=== PATIENT | female | born 1995 | race African-American/Black ===

== ENCOUNTER 2018-06-23 16:29 | Emergency (ER) | payer MEDICAID ==
[~2018-06-23] VITALS: Ht 152.4 cm; Wt 79.4 kg
[~2018-06-23 16:29] MED LIST: AMOXICILLIN500 MG ORAL; ATROVENT 0.03%30 M1 NASAL; CEPHALEXIN500 MG ORAL; IBUPROFEN600 MG ORAL; IBUPROFEN800 MG ORAL; LEVAQUIN250 M1 ORAL; NKM; PROMETHAZINE-C118 M1 ORAL
[2018-06-23 16:40] VITALS: BP 122/64
[2018-06-23] MEDS ORDERED: Methocarbamol 500mg tab ORAL ONE (16:45)
--- NOTE | 2018-06-23 17:03 | Diagnostic Imaging Report ---
EXAM: XR Left Hand Complete, 3 or More Views CLINICAL HISTORY: PAIN TECHNIQUE: Frontal, lateral and oblique views of the left hand. COMPARISON: No relevant prior studies available. FINDINGS: Bones/joints: No acute displaced fracture or dislocation. Soft tissues: Unremarkable. No radiopaque foreign body. IMPRESSION: No acute displaced fracture or dislocation.
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
[2018-06-23] MEDS ORDERED: ROBAXIN-750750 MG PO (17:11)
[2018-06-23] MEDS ORDERED: TYLENOL EXTRA500 MG ORAL (17:11)
[2018-06-23 17:23] VITALS: BP 124/61
== END 2018-06-23 17:27 | disposition home or self-care (01) ==
LOC: EMR 17:10
DX: S63.602A Unspecified sprain of left thumb, initial encounter (principal); S93.601A Unspecified sprain of right foot, initial encounter; V43.52XA Car driver injured in collision with other type car in traffic accident, initial encounter; Y92.410 Unspecified street and highway as the place of occurrence of the external cause; Z88.1 Allergy status to other antibiotic agents
CPT/HCPCS: 99283

== ENCOUNTER → 2019-09-27 | Emergency (ER) | payer MEDICAID ==
[~2019-09-27] VITALS: Ht 152.4 cm; Wt 81.6 kg
[~2019-09-27] MED LIST changes: +Dexamethasone 4mg/ml vial IVP ONE; +ROBAXIN-750750 MG PO; +TYLENOL EXTRA500 MG ORAL
[2019-09-27 15:30] VITALS: BP 112/69
--- NOTE | 2019-09-27 15:30 | NUR ---
ED Nurse Note: Pt ambulated to ed d/t throat pain started since yesterday
--- NOTE | 2019-09-27 15:40 | Emergency Room Report ---
History of Present Illness General Chief Complaint: Sore Throat Source: Patient Present Illness HPI 24-year-old female presents with cough, sore throat no fevers, x1 day no aggravating relieving factors severity is mild, sore throat is achy in nature patient presents for evaluation symptom started 1 day ago Allergies: Coded Allergies: ERYTHROMYCIN BASE (Unverified Allergy, Unknown, 01/24/14) Patient History Past Medical History: see triage record Now: No Reviewed Nursing Documentation: PMH: Agreed; PSxH: Agreed Nursing Documentation-PMH Past Medical History: No Stated History Review of Systems All Other Systems: negative except mentioned in HPI Physical Exam Vital Signs Date Time Temp Pulse Resp B/P (MAP) Pulse Ox O2 Delivery O2 Flow Rate FiO2 09/27/19 15:28 98.1 98 17 112/69 (83) 99 Room Air Sp02 EP Interpretation: reviewed, normal General Appearance: well appearing, no apparent distress, alert Head: normocephalic, atraumatic Eyes: bilateral eye PERRL, bilateral eye EOMI ENT: uvula midline, moist mucus membranes Neck: supple, thyroid normal, supple/symm/no masses Respiratory: lungs clear, no respiratory distress, no retraction, no accessory muscle use Cardiovascular #1: normal peripheral pulses, regular rate, rhythm, no edema, no gallop, no murmur Gastrointestinal: non tender, soft, no guarding, no rebound Musculoskeletal: normal inspection Neurologic: alert, oriented x3 Psychiatric: mood/affect normal Skin: no rash, warm/dry Medical Decision Making Diagnostic Impression: Primary Impression: Viral pharyngitis ER Course 24-year-old female presents with cough, sore throat most likely viral pharyngitis, low suspicion for strep throat given the fact she is got 0 out of the 4 Cent[facility] criteria Disposition home with return cautions follow-up with PCP supportive care Decadron given to patient Last Vital Signs Date Time Temp Pulse Resp B/P (MAP) Pulse Ox O2 Delivery O2 Flow Rate FiO2 09/27/19 15:28 98.1 98 17 112/69 (83) 99 Room Air Disposition: HOME, SELF-CARE Condition: Stable Referrals: [facility] Patient Instructions: Pharyngitis, [id number] Additional Instructions: The patient was provided with discharge instructions, notified to follow-up with a primary care doctor and or specialist in the next 24-48 hours, and to return to the ED if they have worsening of their symptoms. Please note that this report is being documented using [employer] technology. This can lead to erroneous entry secondary to incorrect interpretation by the dictating instrument. Yared Lim MD Sep 27, 2019 15:40
[2019-09-27 15:49] VITALS: BP 112/69
--- NOTE | 2019-09-27 15:49 | NUR ---
ER DISCHARGE NOTE: Patient is cleared to be discharged per ERMD, pt is aox4, on room air, with stable vital signs. pt was given dc and prescription instructions, pt was able to verbalize understanding, pt id band removed. pt is able to ambulate with steady gait. pt took all belongings.
== END | disposition home or self-care (01) ==
LOC: EMR 15:40
DX: J02.9 Acute pharyngitis, unspecified (principal); Z88.1 Allergy status to other antibiotic agents
CPT/HCPCS: 81025; 96374; J1100; Z7502; 99284

== ENCOUNTER 2020-01-15 09:16 | Emergency (ER) | payer MEDICAID ==
[~2020-01-15] VITALS: Ht 152.4 cm; Wt 86.2 kg
[~2020-01-15 09:16] MED LIST changes: -Dexamethasone 4mg/ml vial IVP ONE
--- NOTE | 2020-01-15 09:47 | Emergency Room Report ---
History of Present Illness General Chief Complaint: Abdominal Pain Source: Patient (Jose Javier MD) Present Illness HPI Disclaimer: Please note that this report is being documented using [employer] [place] technology. This can lead to erroneous entry secondary to incorrect interpretation by the dictating instrument. HPI: 24-year-old female presents for evaluation of pelvic pain. Symptoms began last night approximately 1 AM. She notes a generalized discomfort aching and cramping in the lower pelvic in the suprapubic region bilateral lower quadrants. Denies nausea, vomiting, fever, chills, flank pain. Denies vaginal discharge, vaginal bleeding, dysuria, hematuria. No history of stones. Reports recent unprotected intercourse but no prior history of STI. She has a history of UTIs. Denies history of ovarian cyst or torsion. LMP was 01/01/2020 PMH: Denied PSH: Denied Allergies: Denied Social Hx: Denied (Jose Javier MD) Allergies: Coded Allergies: ERYTHROMYCIN BASE (Unverified Allergy, Unknown, 01/24/14) COVID-19 Screening Contact w/high risk pt: No Recent Travel to affected area: No Experienced COVID-19 symptoms?: No COVID-19 Testing performed ATTENDING UROLOGIST: No (Jose Javier MD) Patient History Last Menstrual Period: 01/01/20 (Jose Javier MD) Review of Systems All Other Systems: negative except mentioned in HPI (Jose Javier MD) Physical Exam Vital Signs Date Time Temp Pulse Resp B/P (MAP) Pulse Ox O2 Delivery O2 Flow Rate FiO2 01/15/20 09:27 98.2 70 19 137/88 (104) 98 Room Air General: Awake and alert, no acute distress HEENT: NC/AT. EOMI. Resp: Normal work of breathing Abdomen: Soft, nondistended, obese. Tenderness palpation in the suprapubic region. Mild tenderness in the lower quadrants bilaterally. No rebound. No mass. Skin: Intact. No abrasions, laceration or rash over the exposed skin MSK: Normal tone and bulk. Moving all extremities. No obvious deformity. Neuro: Awake and alert. Mentating appropriately (Jose Javier MD) Medical Decision Making Diagnostic Impression: Primary Impression: Pelvic inflammatory disease ER Course Is a 24-year-old female presenting for evaluation of lower pelvic pain since last night. Differential includes was not limited to ovarian cyst, ovarian torsion, UTI, pyelonephritis, appendicitis, bowel obstruction, constipation, STI , PID, TOA, ectopic to name a few. Patient presentation is most consistent with urinary tract infection however initial urinalysis did not show obvious urinary tract infection. Ultrasound showed a questionable mass which may be a loop of bowel but was difficult to differentiate. Otherwise there is evidence of some fibroid uterus changes but no other significant findings. A CT scan and labs were ordered and is pending at the time of signout to Dr. Alonzo. Laboratory Tests Test 01/15/20 09:47 01/15/20 12:32 Urine Color Yellow Urine Appearance Clear Urine pH 5 (4.5-8.0) Urine Specific [place] 1.020 (1.005-1.035) Urine Protein Negative (NEGATIVE) Urine Glucose (UA) Negative (NEGATIVE) Urine Ketones Negative (NEGATIVE) Urine Blood 1+ (NEGATIVE) H Urine Nitrite Negative (NEGATIVE) Urine Bilirubin Negative (NEGATIVE) Urine Urobilinogen Normal MG/DL (0.0-1.0) Urine Leukocyte Esterase 1+ (NEGATIVE) H Urine RBC 0-2 /HPF (0 - 2) Urine WBC 2-4 /HPF (0 - 2) Urine Squamous Epithelial Cells Few /LPF (NONE/OCC) Urine Bacteria Few /HPF (NONE) Urine Mucus Moderate /LPF (NONE/OCC) H Urine HCG, Qualitative Negative (NEGATIVE) White Blood Count 10.8 K/UL (4.8-10.8) Red Blood Count 5.16 M/UL (4.20-5.40) Hemoglobin 12.6 G/DL (12.0-16.0) Hematocrit 40.2 % (37.0-47.0) Mean Corpuscular Volume 78 FL (80-99) L Mean Corpuscular Hemoglobin 24.4 PG (27.0-31.0) L Mean Corpuscular Hemoglobin Concent 31.3 G/DL (32.0-36.0) L Red Cell Distribution Width 14.3 % (11.6-14.8) Platelet Count 239 K/UL (150-450) Mean Platelet Volume 10.2 FL (6.5-10.1) H Neutrophils (%) (Auto) 67.0 % (45.0-75.0) Lymphocytes (%) (Auto) 24.5 % (20.0-45.0) Monocytes (%) (Auto) 6.5 % (1.0-10.0) Eosinophils (%) (Auto) 1.2 % (0.0-3.0) Basophils (%) (Auto) 0.8 % (0.0-2.0) Sodium Level 137 MMOL/L (136-145) Potassium Level 3.6 MMOL/L (3.5-5.1) Chloride Level 103 MMOL/L (98-107) Carbon Dioxide Level 28 MMOL/L (21-32) Anion Gap 6 mmol/L (5-15) Blood Urea Nitrogen 7 mg/dL (7-18) Creatinine 0.7 MG/DL (0.55-1.30) Estimated Glomerular Filtration Rate > 60 mL/min (>60) Glucose Level 90 MG/DL (74-106) Calcium Level 8.4 MG/DL (8.5-10.1) L (Jose Javier MD) ER Course Patient was endorsed me by Dr. Javier pending CT imaging, see his note for full history and physical. Patient was noted to have pelvic pain. Onset after recent intercourse. CT imaging showed mild inflammatory changes centered in the pelvis suggesting pelvic inflammatory disease. No abscess was noted. Patient was given IM Rocephin as well as prescription for doxycycline. She was advised to follow-up with [facility] for recheck. Patient was given copies of radiology reports and advised to have outpatient STD testing and to advise her sexual contacts. T Patient is advised to return if any worsening condition or if any changes in status that are concerning. This report is dictated with [employer] insurance claim approver software which may occasionally lead to discrepancies related to use of this software. Labs Test 01/15/20 09:47 01/15/20 12:32 Urine Color Yellow Urine Appearance Clear Urine pH 5 (4.5-8.0) Urine Specific [place] 1.020 (1.005-1.035) Urine Protein Negative (NEGATIVE) Urine Glucose (UA) Negative (NEGATIVE) Urine Ketones Negative (NEGATIVE) Urine Blood 1+ (NEGATIVE) Urine Nitrite Negative (NEGATIVE) Urine Bilirubin Negative (NEGATIVE) Urine Urobilinogen Normal MG/DL (0.0-1.0) Urine Leukocyte Esterase 1+ (NEGATIVE) Urine RBC 0-2 /HPF (0 - 2) Urine WBC 2-4 /HPF (0 - 2) Urine Squamous Epithelial Cells Few /LPF (NONE/OCC) Urine Bacteria Few /HPF (NONE) Urine Mucus Moderate /LPF (NONE/OCC) Urine HCG, Qualitative Negative (NEGATIVE) White Blood Count 10.8 K/UL (4.8-10.8) Red Blood Count 5.16 M/UL (4.20-5.40) Hemoglobin 12.6 G/DL (12.0-16.0) Hematocrit 40.2 % (37.0-47.0) Mean Corpuscular Volume 78 FL (80-99) Mean Corpuscular Hemoglobin 24.4 PG (27.0-31.0) Mean Corpuscular Hemoglobin Concent 31.3 G/DL (32.0-36.0) Red Cell Distribution Width 14.3 % (11.6-14.8) Platelet Count 239 K/UL (150-450) Mean Platelet Volume 10.2 FL (6.5-10.1) Neutrophils (%) (Auto) 67.0 % (45.0-75.0) Lymphocytes (%) (Auto) 24.5 % (20.0-45.0) Monocytes (%) (Auto) 6.5 % (1.0-10.0) Eosinophils (%) (Auto) 1.2 % (0.0-3.0) Basophils (%) (Auto) 0.8 % (0.0-2.0) Sodium Level 137 MMOL/L (136-145) Potassium Level 3.6 MMOL/L (3.5-5.1) Chloride Level 103 MMOL/L (98-107) Carbon Dioxide Level 28 MMOL/L (21-32) Anion Gap 6 mmol/L (5-15) Blood Urea Nitrogen 7 mg/dL (7-18) Creatinine 0.7 MG/DL (0.55-1.30) Estimat Glomerular Filtration Rate > 60 mL/min (>60) Glucose Level 90 MG/DL (74-106) Calcium Level 8.4 MG/DL (8.5-10.1) (Robbin Alonzo MD) CT/MRI/US Diagnostic Results CT/MRI/US Diagnostic Results : Impression rocedure: US Pelvic Transabdominal EXAM: US Pelvic Transabdominal, US Transvaginal (Non ) CLINICAL HISTORY: Abdominal and pelvic pain. COMPARISON: None TECHNIQUE: Ultrasound examination of the pelvis includes grayscale images, and color and spectral doppler analysis. FINDINGS: Transabdominal and transvaginal technique utilized. The uterus measures 6.8 x 5.2 x 3.6 cm. Myometrium is heterogeneous with possible fibroid change. Endometrial stripe is 9 mm. Right ovary measures 3 x 2.7 cm. Left ovary measures 2.5 x 2.1 cm. Etmam-fb-wnwihurh free fluid noted in the pelvis. Adjacent to the uterine fundus, there are apparent somewhat tubular isoechoic structures difficult to separate from the uterus and adnexa. Exact etiology unclear. The appearance is not typical of fallopian tube. Question whether this is adjacent bowel. IMPRESSION: SLIGHTLY HETEROGENEOUS UTERUS LIKELY WITH FIBROID CHANGE. OVARIES GROSSLY WITHIN NORMAL LIMITS. ADJACENT TO THE UTERUS AND ADNEXAL REGIONS, THERE IS SOMEWHAT TUBULAR ISOECHOIC STRUCTURES WHICH ARE DIFFICULT TO SEPARATE. APPEARANCE IS NOT TYPICAL FOR FALLOPIAN TUBE. EXACT ETIOLOGY UNCLEAR. QUESTION WHETHER THESE MAY BE BOWEL LOOPS. CONSIDER FOLLOW-UP CT. Dictated By: Kirill Malik MD Electronically Signed By: Kirill Malik MD Signed Date/Time 01/15/20 3808 CC: Jose Javier MD (Jose Javier MD) Last Vital Signs Date Time Temp Pulse Resp B/P (MAP) Pulse Ox O2 Delivery O2 Flow Rate FiO2 01/15/20 09:27 98.2 70 19 137/88 (104) 98 Room Air (Jose Javier MD) Status: improved (Robbin Alonzo MD) Disposition: HOME, SELF-CARE Condition: Stable Scripts Ibuprofen* (MOTRIN*) 600 Mg Tablet 600 MG ORAL Q8H PRN for FOR PAIN, #20 TAB 0 Refills Prov: Robbin Alonzo MD 01/15/20 Doxycycline Monohydrate* (DOXYCYCLINE MONOHYDRATE*) 100 Mg Capsule 100 MG ORAL Q12H, #14 CAP 0 Refills Prov: Robbin Alonzo MD 01/15/20 Jose Javier MD Jan 15, 2020 09:47 Robbin Alonzo MD Jan 15, 2020 15:23
[2020-01-15 10:06] LABS: APPEARANCE,URINE CLEAR; BILIRUBIN, URINE NEGATIVE (NEGATIVE); GLUCOSE, URINE (UA) NEGATIVE (NEGATIVE); KETONES,URINE NEGATIVE (NEGATIVE); LEUKOCYTE ESTERASE ,URINE 1+ (NEGATIVE); NITRITE,URINE NEGATIVE (NEGATIVE); PH,URINE 5 (4.5-8.0); PROTEIN,URINE NEGATIVE (NEGATIVE); UROBILINOGEN,URINE NORMAL MG/DL (0.0-1.0)
[2020-01-15 10:07] LABS: COLOR,URINE YELLOW
--- NOTE | 2020-01-15 12:02 | Diagnostic Imaging Report ---
EXAM: US Pelvic Transabdominal, US Transvaginal (Non ) CLINICAL HISTORY: Abdominal and pelvic pain. COMPARISON: None TECHNIQUE: Ultrasound examination of the pelvis includes grayscale images, and color and spectral doppler analysis. FINDINGS: Transabdominal and transvaginal technique utilized. The uterus measures 6.8 x 5.2 x 3.6 cm. Myometrium is heterogeneous with possible fibroid change. Endometrial stripe is 9 mm. Right ovary measures 3 x 2.7 cm. Left ovary measures 2.5 x 2.1 cm. Seiop-cu-iwcezofd free fluid noted in the pelvis. Adjacent to the uterine fundus, there are apparent somewhat tubular isoechoic structures difficult to separate from the uterus and adnexa. Exact etiology unclear. The appearance is not typical of fallopian tube. Question whether this is adjacent bowel. IMPRESSION: SLIGHTLY HETEROGENEOUS UTERUS LIKELY WITH FIBROID CHANGE. OVARIES GROSSLY WITHIN NORMAL LIMITS. ADJACENT TO THE UTERUS AND ADNEXAL REGIONS, THERE IS SOMEWHAT TUBULAR ISOECHOIC STRUCTURES WHICH ARE DIFFICULT TO SEPARATE. APPEARANCE IS NOT TYPICAL FOR FALLOPIAN TUBE. EXACT ETIOLOGY UNCLEAR. QUESTION WHETHER THESE MAY BE BOWEL LOOPS. CONSIDER FOLLOW-UP CT.
[2020-01-15] MEDS ORDERED: Omnipaque-300 100ml vial INJ PRN (12:15)
[2020-01-15 12:52] LABS: BASOPHILS % (AUTO) 0.8 % (0.0-2.0); EOSINOPHILS % (AUTO) 1.2 % (0.0-3.0); HEMATOCRIT 40.2 % (37.0-47.0); HEMOGLOBIN 12.6 G/DL (12.0-16.0); LYMPHOCYTES % (AUTO) 24.5 % (20.0-45.0); MEAN CORPUSCULAR VOLUME 78 FL (80-99); MONOCYTES % (AUTO) 6.5 % (1.0-10.0); PLATELET COUNT 239 K/UL (150-450); RED BLOOD COUNT 5.16 M/UL (4.20-5.40); RED CELL DISTRIBUTION WIDTH 14.3 % (11.6-14.8); WHITE BLOOD COUNT 10.8 K/UL (4.8-10.8)
[2020-01-15 12:57] LABS: ANION GAP 6 mmol/L (5-15); BLOOD UREA NITROGEN 7 mg/dL (7-18); CALCIUM 8.4 MG/DL (8.5-10.1); CARBON DIOXIDE 28 MMOL/L (21-32); CHLORIDE 103 MMOL/L (98-107); CREATININE 0.7 MG/DL (0.55-1.30); POTASSIUM 3.6 MMOL/L (3.5-5.1); SODIUM 137 MMOL/L (136-145)
--- NOTE | 2020-01-15 15:02 | Diagnostic Imaging Report ---
Indication: Abdominal pain Technique: CT of the abdomen and pelvis utilizing automated exposure control with intravenous contrast. Venous scanning performed. Axial, sagittal and coronal reformats presented. CT dose: Total DLP 449.9 mGycm; CTDI vol 9.3 mGy Comparison: No prior CT abdomen and pelvis comparison. Correlation made to concurrent pelvic ultrasound. Findings: Image lower chest unremarkable. Liver is normal in size and contour. No focal hepatic mass lesion identified on this single phase exam. Hepatic veins and portal veins are patent. There are no CT evident gallstones or pericholecystic inflammatory changes. No biliary ductal dilatation. Spleen, adrenal glands and pancreas unremarkable. No discrete peripancreatic inflammatory changes or fluid collections. Enhancement is uniform. Kidneys are symmetric in size and demonstrate normal symmetric enhancement. There is no urinary tract stone, hydronephrosis or perinephric stranding bilaterally. The bladder is unremarkable in appearance. Mild fluid and subtle pelvic fat stranding/haziness is noted. Some small free fluid is noted within the pouch of . There may be some mild fallopian tube thickening/enhancement. There is a 6 mm low-attenuation lesion in the right adnexal region which may represent dominant follicle in the right ovary seen on ultrasound. No definite organized/drainable fluid collection suggest abscess noted. There is no free intraperitoneal air. There is no evidence of small bowel obstruction. Appendix is normal in caliber. Abdominal aorta is normal in caliber. Small retroperitoneal lymph nodes are noted, possibly reactive in etiology. There is no acute osseous abnormality. No subcutaneous fluid collection/abscess. Incidental note is made of an umbilical piercing. IMPRESSION: Mild inflammatory changes centered in the pelvis suggesting pelvic inflammatory disease. Correlation with clinical findings recommended. No organized/drainable fluid collection/abscess noted. The CT scanner at [facility] is accredited by the [employer] and the scans are performed using protocols designed to limit radiation exposure to as low as reasonably achievable to attain images of sufficient resolution adequate for diagnostic evaluation.
[2020-01-15] MEDS ORDERED: DOXYCYCLINE MO100 MG ORAL (15:19)
[2020-01-15] MEDS ORDERED: IBUPROFEN600 M1 ORAL (15:19)
[2020-01-15] MEDS ORDERED: Lidocaine 1% MPF 10mg/ml 5ml INJ ONE (15:30)
[2020-01-15 15:46] VITALS: BP 128/78
== END 2020-01-15 15:48 | disposition home or self-care (01) ==
LOC: EMR 10:07
DX: N73.9 Female pelvic inflammatory disease, unspecified (principal); Z88.8 Allergy status to other drugs, medicaments and biological substances; E66.9 Obesity, unspecified
CPT/HCPCS: 36415; 74177; 76830; 76856; 80048; 81003; 81025; 85025; 96372; 96374; J0696; Q9967; Z7502; 99284

== ENCOUNTER 2020-05-02 22:36 | Emergency (ER) | payer MEDICAID ==
[~2020-05-02] VITALS: Ht 152.4 cm; Wt 83.9 kg
[~2020-05-02 22:36] MED LIST changes: +DOXYCYCLINE MO100 MG ORAL; +IBUPROFEN600 M1 ORAL
--- NOTE | 2020-05-02 23:15 | NUR ---
ED Nurse Note: Recieved pt from home with c/o lower abdominal pain radiating to left side intermittently at 8/10 for about 1 week, pt has hx of possible PID or ovarian cyst and states it feels same but wore, denies or missed or abnormal menstrual periods, pt denies vaginal discharge or dysuria but has intermittent diarrhea and nausea, pt assisted with jerry bolivar and mihaela, placed on cardiac monitoring, IV line done and labs, will resume care as ordered and continue to closely monitor.
[2020-05-02] MEDS ORDERED: Morphine Sulfate 4mg/ml Inj (IV USE ONLY) IVP ONE (23:30)
[2020-05-02 23:49] LABS: APPEARANCE,URINE SLIGHTLY CLOUDY; BILIRUBIN, URINE NEGATIVE (NEGATIVE); COLOR,URINE PALE YELLOW; GLUCOSE, URINE (UA) NEGATIVE (NEGATIVE); KETONES,URINE NEGATIVE (NEGATIVE); LEUKOCYTE ESTERASE ,URINE 1+ (NEGATIVE); NITRITE,URINE NEGATIVE (NEGATIVE); PH,URINE 7 (4.5-8.0); PROTEIN,URINE NEGATIVE (NEGATIVE); UROBILINOGEN,URINE NORMAL MG/DL (0.0-1.0)
[2020-05-02 23:51] LABS: BASOPHILS % (AUTO) 3.5 % (0.0-2.0); EOSINOPHILS % (AUTO) 1.6 % (0.0-3.0); HEMATOCRIT 36.7 % (37.0-47.0); HEMOGLOBIN 13.2 G/DL (12.0-16.0); LYMPHOCYTES % (AUTO) 25.6 % (20.0-45.0); MEAN CORPUSCULAR VOLUME 71 FL (80-99); MONOCYTES % (AUTO) 12.3 % (1.0-10.0); PLATELET COUNT 202 K/UL (150-450); RED BLOOD COUNT 5.17 M/UL (4.20-5.40); RED CELL DISTRIBUTION WIDTH 13.4 % (11.6-14.8); WHITE BLOOD COUNT 11.2 K/UL (4.8-10.8)
[2020-05-02 23:59] LABS: ANION GAP 5 mmol/L (5-15); BLOOD UREA NITROGEN 13 mg/dL (7-18); CALCIUM 8.9 MG/DL (8.5-10.1); CARBON DIOXIDE 29 MMOL/L (21-32); CHLORIDE 105 MMOL/L (98-107); CREATININE 0.9 MG/DL (0.55-1.30); POTASSIUM 3.5 MMOL/L (3.5-5.1); SODIUM 139 MMOL/L (136-145)
[2020-05-03] VITALS: BP_SYST 111; BP_SYST 119; BP_DIAS 64; BP_DIAS 69
[2020-05-03 00:04] LABS: ALANINE AMINOTRANSFERASE 12 U/L (12-78); ALBUMIN 3.7 G/DL (3.4-5.0); ALBUMIN/GLOBULIN RATIO 0.9 (1.0-2.7); ALKALINE PHOSPHATASE 74 U/L (46-116); ASPARTATE AMINO TRANSFERASE 14 U/L (15-37); BILIRUBIN,TOTAL 0.2 MG/DL (0.2-1.0)
--- NOTE | 2020-05-03 01:05 | NUR ---
ED Nurse Note: Pt resting quietly in bed, states pain meds very effective with pain at 0/10, ultrasond tech at bedside, pt remains on monitoring, v/s stable, o2 kye=253% on RA, nad noted, will continue to closely monitor, IV site patent with fluids completed, pt tolerated well.
[2020-05-03 02:00] VITALS: BP 119/64
--- NOTE | 2020-05-03 03:00 | NUR ---
ED Nurse Note: Pt sleeping, arouses easily to verbal stimuli, no sob or labored breathing, IV site patent, no pain, pt waiting for results and disposition. Remains on cardiac monitoring with stable v/s and o2 sat = 100% on RA.
[2020-05-03 04:15] VITALS: BP 113/58
--- NOTE | 2020-05-03 05:11 | Emergency Room Report ---
History of Present Illness General Chief Complaint: Abdominal Pain Source: Patient Present Illness HPI 25-year-old female presents the ED complaining of pelvic pain. Notes pain to left lower pelvic area. Sharp, 7 out of 10, nonradiating. States she is had similar pain in the past and was diagnosed with PID. Denies discharge or bleeding. Denies nausea or vomiting. No other aggravating relieving factors. Denies any other associated symptoms Allergies: Coded Allergies: ERYTHROMYCIN BASE (Unverified Allergy, Unknown, 01/24/14) COVID-19 Screening Contact w/high risk pt: No Recent Travel to affected area: No Experienced COVID-19 symptoms?: No COVID-19 Testing performed GRINDER LAP: No Patient History Past Medical History: none Past Surgical History: none Pertinent Family History: none Social History: Denies: smoking, alcohol use, drug use Now: No : 1 Para: 0 Immunizations: UTD Reviewed Nursing Documentation: PMH: Agreed; PSxH: Agreed Nursing Documentation-PMH Past Medical History: No Stated History Review of Systems All Other Systems: negative except mentioned in HPI Physical Exam Vital Signs Date Time Temp Pulse Resp B/P (MAP) Pulse Ox O2 Delivery O2 Flow Rate FiO2 05/02/20 22:40 98.2 90 16 107/68 (81) 98 Room Air Sp02 EP Interpretation: reviewed, normal General Appearance: no apparent distress, alert, GCS 15, non-toxic Head: normocephalic, atraumatic Eyes: bilateral eye normal inspection, bilateral eye PERRL ENT: hearing grossly normal, normal pharynx, no angioedema, normal voice Neck: full range of motion, supple/symm/no masses Respiratory: chest non-tender, lungs clear, normal breath sounds, speaking full sentences Cardiovascular #1: regular rate, rhythm, no edema Cardiovascular #2: 2+ carotid (R), 2+ carotid (L), 2+ radial (R), 2+ radial (L), 2+ dorsalis pedis (R), 2+ dorsalis pedis (L) Gastrointestinal: normal bowel sounds, soft, non-distended, no guarding, no rebound, tenderness - LLQ Rectal: deferred Genitourinary: normal inspection, no CVA tenderness Musculoskeletal: back normal, normal range of motion, gait/station normal, non- tender Neurologic: alert, motor strength/tone normal, oriented x3, sensory intact, responsive, speech normal Psychiatric: judgement/insight normal, memory normal, mood/affect normal, no suicidal/homicidal ideation Reflexes: 3+ bicep (R), 3+ bicep (L), 3+ tricep (R), 3+ tricep (L), 3+ knee (R), 3+ knee (L) Skin: no rash Lymphatic: no adenopathy Medical Decision Making Diagnostic Impression: Primary Impression: Pelvic pain ER Course Hospital Course 25 yo F presents with LLQ pain. h/o PID. Differential diagnoses include: gastrits, gastroenterits, ectopic , ovarian torsion/cyst, UTI Clinical course Patient placed on stretcher in ED. After initial history and physical I ordered labs, IV fluids and pain meds and pelvic ultrasound. Labs- minimal leukocytosis, electrolytes okay, beta hCG negative, UA negative After ultrasound was performed PACS system went down. I am unable to visualize ultrasound nor is study able to be sent to stat rad. I then ordered CT. Patient states she could not wait for results and had to leave for work. Patient states she wishes to go home. Understands the risks of leaving. Patient has competency to make her own decisions. Signed AMA form. Diagnosis - pelvic pain patient left AMA Laboratory Tests Test 05/02/20 23:18 White Blood Count 11.2 K/UL (4.8-10.8) H Red Blood Count 5.17 M/UL (4.20-5.40) Hemoglobin 13.2 G/DL (12.0-16.0) Hematocrit 36.7 % (37.0-47.0) L Mean Corpuscular Volume 71 FL (80-99) L Mean Corpuscular Hemoglobin 25.5 PG (27.0-31.0) L Mean Corpuscular Hemoglobin Concent 35.9 G/DL (32.0-36.0) Red Cell Distribution Width 13.4 % (11.6-14.8) Platelet Count 202 K/UL (150-450) Mean Platelet Volume 9.1 FL (6.5-10.1) Neutrophils (%) (Auto) 57.0 % (45.0-75.0) Lymphocytes (%) (Auto) 25.6 % (20.0-45.0) Monocytes (%) (Auto) 12.3 % (1.0-10.0) H Eosinophils (%) (Auto) 1.6 % (0.0-3.0) Basophils (%) (Auto) 3.5 % (0.0-2.0) H Urine Color Pale yellow Urine Appearance Slightly cloudy Urine pH 7 (4.5-8.0) Urine Specific Ernest 1.010 (1.005-1.035) Urine Protein Negative (NEGATIVE) Urine Glucose (UA) Negative (NEGATIVE) Urine Ketones Negative (NEGATIVE) Urine Blood Negative (NEGATIVE) Urine Nitrite Negative (NEGATIVE) Urine Bilirubin Negative (NEGATIVE) Urine Urobilinogen Normal MG/DL (0.0-1.0) Urine Leukocyte Esterase 1+ (NEGATIVE) H Urine RBC 0-2 /HPF (0 - 2) Urine WBC 2-4 /HPF (0 - 2) Urine Squamous Epithelial Cells Many /LPF (NONE/OCC) H Urine Bacteria Few /HPF (NONE) Urine HCG, Qualitative Negative (NEGATIVE) Sodium Level 139 MMOL/L (136-145) Potassium Level 3.5 MMOL/L (3.5-5.1) Chloride Level 105 MMOL/L (98-107) Carbon Dioxide Level 29 MMOL/L (21-32) Anion Gap 5 mmol/L (5-15) Blood Urea Nitrogen 13 mg/dL (7-18) Creatinine 0.9 MG/DL (0.55-1.30) Estimat Glomerular Filtration Rate > 60 mL/min (>60) Glucose Level 83 MG/DL (74-106) Calcium Level 8.9 MG/DL (8.5-10.1) Total Bilirubin 0.2 MG/DL (0.2-1.0) Aspartate Amino Transf (AST/SGOT) 14 U/L (15-37) L Alanine Aminotransferase (ALT/SGPT) 12 U/L (12-78) Alkaline Phosphatase 74 U/L (46-116) Total Protein 7.6 G/DL (6.4-8.2) Albumin 3.7 G/DL (3.4-5.0) Globulin 3.9 g/dL Albumin/Globulin Ratio 0.9 (1.0-2.7) L Lipase 94 U/L (73-393) Last Vital Signs Date Time Temp Pulse Resp B/P (MAP) Pulse Ox O2 Delivery O2 Flow Rate FiO2 10/4/20 00:17 98.3 05/03/20 00:00 81 18 119/64 99 Room Air Status: improved Disposition: AGAINST MEDICAL ADVICE Condition: Stable Referrals: NON PHYSICIAN (PCP) Adithya Gray MD May 03, 2020 05:11
[2020-05-03 06:00] VITALS: BP 126/69
[2020-05-03] MEDS ORDERED: Omnipaque-300 100ml vial INJ PRN (06:00)
--- NOTE | 2020-05-03 06:15 | NUR ---
ED Nurse Note: Pt continues to rest quietly, awakened and wants to leave, has to go to work, pt continuing to wait for results, computer down, pt states will return after work for results and if need further assistance, pt still has not been discharged but signed AMA form, pt leaving facility awake, alert ad oriented x 4, ambulatory with steady gait, nad noted during d/c to home.
[2020-05-03 06:20] VITALS: BP 126/69
--- NOTE | 2020-05-03 06:38 | Diagnostic Imaging Report ---
EXAM: US Pelvis Transvaginal and US Duplex Arterial/Venous of the Pelvis, Complete CLINICAL HISTORY: ABD PAIN TECHNIQUE: Real-time transvaginal pelvic ultrasound with image documentation. Transvaginal imaging was used for better evaluation of the endometrium and adnexa. Real-time duplex ultrasound scan of the arterial and venous flow of the pelvis with color Doppler flow and spectral waveform analysis. COMPARISON: 05/02/2020. FINDINGS: Uterus/cervix: The uterus measures 7.1 x 5 x 3.8 cm. Endometrial stripe measures approximately 1.6 cm in thickness. No myometrial mass. Right ovary: The right ovary measures 4.8 x 4.1 x 3.4 centers. A 3.4 x 3.3 x 3.2 cm complex right ovarian cyst is noted of uncertain etiology. Flow is demonstrated to the ovaries. No torsion. Left ovary: Left ovary measures 2.4 x 1.2 x 0.8 cm. Free fluid: No free fluid. Bladder: Empty bladder which cannot be evaluated with this probe. Other findings: Similar finding was noted on the previous study of 05/02/2020. IMPRESSION: 1. Complex right ovarian cyst of uncertain etiology, similar to yesterday's study. 2. Flow noted to the ovaries. 3. Magnetic resonance imaging of the pelvis with gadolinium administration may provide additional information should be considered for follow-up.
== END 2020-05-03 06:20 | disposition left against medical advice (07) ==
LOC: EMR 23:15
DX: R10.2 Pelvic and perineal pain (principal); R10.32 Left lower quadrant pain; D72.829 Elevated white blood cell count, unspecified; N83.201 Unspecified ovarian cyst, right side
CPT/HCPCS: 36415; 76830; 76856; 80053; 81003; 81025; 83690; 85025; 96361; 96374; J2270; Z7502; 99284